=== PATIENT | male | born 1970 | race Caucasian/White ===

== ENCOUNTER 2019-10-22 18:29 | Outpatient (REF) | payer MEDICARE, SELFPAY ==
[2019-10-22 19:10] LABS: Calculated LDL 104 mg/dL (<100); Cholesterol 201 mg/dL (<200); HDL Cholesterol 56 mg/dL (40-60); Triglyceride 207 mg/dL (<150)
== END 2019-10-22 18:49 ==
LOC: LBN 18:29
PROVIDERS: PCP Internal Medicine; Visit Provider Internal Medicine
DX: E78.00 Pure hypercholesterolemia, unspecified (principal)
CPT/HCPCS: 80061

== ENCOUNTER 2021-06-09 15:43 | Outpatient (REF) | payer MEDICARE, MEDICAID, SELFPAY ==
[2021-06-09 21:35] LABS: Anion Gap 11.8 mmol/L (3-11); BUN 12 mg/dL (7-18); CO2 26.2 mmol/L (21.0-32.0); CREATININE 1.2 mg/dL (0.70-1.30); Calcium 9.3 mg/dL (8.5-10.1); Chloride 102 mmol/L (98-107); Glucose 118 mg/dL (74-106); Potassium 3.6 mmol/L (3.5-5.1); Sodium 140 mmol/L (136-145)
[2021-06-09 21:49] LABS: Cholesterol 337 mg/dL (<200); HDL Cholesterol 58 mg/dL (40-60); Triglyceride 425 mg/dL (<150)
[2021-06-09 22:01] LABS: LDL CHOLESTEROL 193 mg/dL (<100)
== END 2021-06-09 15:44 | disposition home or self-care (01) ==
LOC: LBN 15:43
PROVIDERS: PCP Internal Medicine; Visit Provider Internal Medicine
DX: I10 Essential (primary) hypertension (principal); E78.00 Pure hypercholesterolemia, unspecified
CPT/HCPCS: 80048; 80061; 83721

== ENCOUNTER 2021-06-22 13:39 | Outpatient (CLI) | payer MEDICARE, MEDICAID, SELFPAY ==
--- NOTE | 2021-06-22 13:30 | RT.EKG_ITS ---
APPROVED REPORT Exam: Resting ECG Reason for Exam: preop Patient Location: O HR:90 bpm ECG Measurements Heart Rate 90 AXIS IN 168 P 63 QRSd 97 QRS -30 QT 375 T 34 QTc 457 Conclusion Sinus rhythm...normal P axis, V-rate 60- 99 Left axis deviation...QRS axis (-30,-90)
== END 2021-06-22 13:40 | disposition home or self-care (01) ==
LOC: DI.KIM 13:40
PROVIDERS: PCP Internal Medicine; Visit Provider Internal Medicine
DX: Z01.818 Encounter for other preprocedural examination (principal)
CPT/HCPCS: 93010

== ENCOUNTER 2021-07-14 01:59 | Outpatient (CLI) | payer MEDICARE, MEDICAID, SELFPAY ==
[2021-07-14 13:05] LABS: Source Nasal/Nares
[2021-07-14 17:58] LABS: COVID-19 PCR Negative (Negative)
== END 2021-07-14 02:00 | disposition home or self-care (01) ==
LOC: LBO 01:59
PROVIDERS: PCP Internal Medicine; Visit Provider Ophthalmology
DX: Z20.822 Contact with and (suspected) exposure to COVID-19 (principal); Z01.818 Encounter for other preprocedural examination
CPT/HCPCS: 87635

== ENCOUNTER 2021-07-16 07:02 | Day surgery (SDC) | payer MEDICARE, MEDICAID, SELFPAY ==
[2021-07-16 07:20] VITALS: BP 129/87; PULSE 90; RESP 16; TEMP 36.3; O2SAT 97
[2021-07-16] MEDS: Tropicam./Phenyleph. (1/2.5%) 5 ML BTL OS ×3 (07:32→07:42)
--- NOTE | 2021-07-16 07:43 | ANES.PREOP_ITS ---
General Info Date of Service Date Performed: 07/16/21 Height: 5 ft 9.75 in Weight: 82 kg Body Mass Index (BMI): 26.1 Surgical Procedure: Operation Date: 07/16/21 08:40 Proposed Procedures Side Surgeon p Cataract Extraction with IOL Implant Left Josh Miller MD Meds Allergies and Home Medications Allergies Allergy/AdvReac Type Severity Reaction Status Date / Time Penicillins Allergy Severe unknown Verified 07/16/21 07:29 aspirin AdvReac Severe Bleed and Verified 07/16/21 07:29 Duodenal Ulcer ciprofloxacin AdvReac Unknown Nausea Verified 07/16/21 07:29 fluoxetine AdvReac Unknown BLURRED Verified 07/16/21 07:29 VISION PAPER TAPE AdvReac Mild Skin Rash Uncoded 07/16/21 07:29 Home Medication Medication Instructions Recorded Lactobacillus acidophilus 1 ea PO PC PRN 03/31/14 [Probiotic] acetaminophen [Tylenol Extra 1,000 mg PO DAILY PRN tab-cap 12/08/15 Strength] escitalopram oxalate 20 mg tablet 20 mg PO DAILY #90 tab-cap 08/24/20 famotidine 20 mg tablet 20 mg PO DAILY PRN 11/11/20 amitriptyline 75 mg tablet 75 mg PO QHS #90 tab 03/25/21 metoprolol succinate 50 mg 50 mg PO DAILY #90 tab 03/25/21 tablet,extended release 24 hr fluocinolone 0.01 % scalp oil and See Rx Instructions TOPICAL BID 06/09/21 shower cap PRN #118.28 ml mirtazapine 15 mg tablet 15 mg PO HS PRN #90 tab 06/09/21 atorvastatin 80 mg tablet 80 mg PO DAILY 06/22/21 Current Visit Medications: Current Medications Generic Name Dose Route Start Last Admin Trade Name Freq PRN Reason Stop Dose Admin Acetaminophen 1,000 mg 07/16/21 06:00 Acetaminophen 500 Mg Tab PO Q4H PRN PRN Miscellaneous Medication 0 ml 07/16/21 06:00 Prednisolone 1%, Moxifloxacin 0.5%, Nepafenac 0.1% 5ml Btl OS DIRECTED [facility] Miscellaneous Medication 0 ml 07/16/21 06:00 07/16/21 07:42 Tropicam./Phenyleph. 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 Gastroesophageal reflux disease 11/22/16 K21.9 Essential hypertension 06/26/13 I10 Elevated random blood glucose level 12/10/14 R73.09 Anxiety 05/25/16 F41.9 Medical History Medical History Cataract, bilateral 04/27/2021 [place] bilateral nuclear sclerotic Chronic pain syndrome (03/13/13) Chronic prescription opiate use (03/13/13) Lumbar radiculopathy Major depressive disorder, recurrent, unspecified (02/14/17) Opiate analgesic contract exists (03/13/13) d/c'd all opioid pain meds 08/2018 Peptic ulcer disease NSAID induced UGIB 10/17/19 ([facility] [place]); 2u PRBC; duodenal ulcer cauterization. h.pylori (-) Surgical History Surgical History Nerve stimulator placement Nerve stimulator removal Tobacco Smoking/Tobacco Use Status: Former Tobacco Use Alcohol Alcohol Intake: never Substance Use Substance use: Occasionally Substance use type: marijuana Details: Pt reports vaping 2400 07/15/21 Vital Signs and Lab Results Vital Signs Most Recent Vital Signs in EMR: Most Recent Vital Signs Temp Pulse Resp BP Pulse Ox 36.3 C L 90 16 129/87 97 07/16/21 07:20 07/16/21 07:20 07/16/21 07:20 07/16/21 07:20 07/16/21 07:20 Lab Results Blood Type / Crossmatch: No Data to Display Complete Blood Count: No Data to Display Complete Metabolic Panel: No Data to Display Liver Function Panel: No Data to Display Coagulation Panel: No Data to Display Cardiac Panel: No Data to Display Arterial Blood Gas: No Data to Display Venous Blood Gas: No Data to Display Pancreas Panel: No Data to Display Thyroid Panel: No Data to Display Infectious Disease: Coronavirus (COVID-19)(PCR) Negative (Negative) 07/14/21 11:08 07/14/21 Coronavirus 2019 Source Nasal/Nares 07/14/21 11:08 07/14/21 Blood Cultures: No Data to Display Toxicology Panel: No Data to Display Imaging and Studies Imaging and Studies EKG Summary: 06/22/2021: Exam: Resting ECG Reason for Exam: preop Patient Location: O HR:90 bpm ECG Measurements Heart Rate 90 AXIS ND 168 P 63 QRSd 97 QRS -30 QT 375 T34 QTc 457 Conclusion Sinus rhythm...normal P axis, V-rate 60- 99 Left axis deviation...QRS axis (-30,-90) Anesthesia Assessment and Plan Anesthesia History Personal History: No History of Anesthesia Complications Family History: No Family History of Anesthesia Complications Exercise Tolerance Exercise Tolerance: Metabolic Equivalents>4 Pertinent Negatives Pertinent Negatives: No Symptoms of GERD and No Major Pulmonary Symptoms or Complaints Cardiac & Pulmonary Exam Cardiac Exam: Normal S1/S2 Heart Sounds Pulmonary Exam: Clear Bilateral Breath Sounds Airway Exam Known Difficult Airway: No Mallampati Class: 1 Mouth Opening: Normal (> 3cm) Thyromental Distance: Greater than 3 cm Facial Hair: Full Torres Neck Range of Motion: Full ROM Neck Circumference: Normal Teeth Condition: Loose or Chipped (Several Missing) ASA Classification ASA Score: ASA 2 Emergency Case?: No NPO Status NPO Status: NPO Clears >2 hours, Solids >8 hours Anesthesia Plan Resuscitation Status: Full Code Anesthesia Technique: MAC Anesthesia Airway Planned: Natural Airway Monitors Used: Standard Monitors
[2021-07-16 07:45] VITALS: BMI 26.1
[2021-07-16] MEDS: Balanced Salt Soln.-PLUS 500 ML BAG (08:27)
[2021-07-16] MEDS: Tetracaine 0.5% 4 ML BTL OS (08:27)
[2021-07-16] MEDS: Lidocaine 1% Pres-Free 5 ML VIAL (08:28)
[2021-07-16] MEDS: Lidocaine 2% Jelly 6 ML SYR (08:28)
[2021-07-16] MEDS: Duovisc Viscoelastic System EACH 1 EACH (08:28)
[2021-07-16] MEDS: Povidone-Iodine Ophth 30 ML BTL (08:30)
[2021-07-16 08:50] VITALS: BP 127/80; PULSE 86; RESP 18; TEMP 36.5; O2SAT 94
--- NOTE | 2021-07-16 08:56 | W.PM.OP ---
Date of service: 07/16/21 Time of Service: 08:57 Operative Note Operative Note DATE OF PROCEDURE: 07/16/21 PRE-OP DIAGNOSIS: Nuclear cataract, right eye POST-OP DIAGNOSIS: same PROCEDURE: Cataract extraction using phacoemulsification with intraocular lens implant, right eye SURGEON: Josh Miller ANESTHESIA TYPE: Local By Surgeon and MAC Refer to Anesthesia Record ESTIMATED BLOOD LOSS: 0 PATHOLOGY: none sent COMPLICATIONS: None Patient was transported to: same day Patient's condition: stable Implants: Bryson & Bryson/ALEX Tecnis [id number] Indications: Progressive visual loss due to cataract, right eye Procedure Description: CATARACT SURGERY OPERATIVE REPORT PREOPERATIVE DIAGNOSIS: 1. Nuclear cataract, right eye POSTOPERATIVE DIAGNOSIS: Same OPERATION: 1. Cataract extraction using phacoemulsification with posterior chamber intraocular lens implant, right eye. IOL: IOL Veterinary Practice Manager/Model: Bryson & Bryson / ALEX Tecnis [id number] IOL Power: + 12.0 diopters IOL Serial Number: [id number] Optic Diameter: 6.0mm Haptic/Overall Diameter: 13.0mm PHACO INFO: BrentM Cubed Technologiesurion Vision System with OZil and Active Fluidics Cumulative Dispersed Energy (CDE): 7.11 seconds SURGEON: Josh Miller MD, AGUS ANESTHESIA: Monitored Anesthesia Care (MAC), with local sub-tenon's anesthetic infiltration COMPLICATIONS: None SPECIMENS: None INDICATIONS FOR PROCEDURE: The patient is a 50-year-old male with history of progressive decreased vision in his right eye secondary to the development of nuclear cataract. He has a history of right esotropia as well. The option of cataract surgery was offered to the patient and he wished to proceed. PROCEDURE: The correct surgical eye was identified and marked as the right eye and the pupil was dilated in the preoperative area using mydriatics and cycloplegics. The dilated pupil size was 7.0 mm. Oral sedation was administered in the form of an Imprimis MKO Melt (midazolam 3mg/ketamine 25mg/ondansetron 2mg). The patient was brought to the operating room where cardiopulmonary monitoring was instituted and surgical time-out was performed, confirming the correct operative eye and IOL power. Topical anesthesia was administered and ophthalmic povidone-iodine 5% was instilled into the conjunctival fornices. Lidocaine gel was applied to the cornea and the elle-ocular area was prepped with Betadine 10% solution and draped in the usual sterile fashion for intraocular surgery, including an aperture drape. A Tegaderm transparent film dressing was cut in half and used to cover the lashes and lid margins. Care was taken to sequester the lashes and lid margins under the Tegaderm dressing. A lid speculum was placed between the lids of the operative eye and the Ismael-Norah operating microscope was maneuvered into position. Flora scissors were then used to make a conjunctival buttonhole approximately 6mm posterior to the limbus in the inferonasal quadrant. Blunt dissection was carried out to expose bare sclera, and a blunt-tipped sub-tenon?s anesthesia cannula was introduced and passed posteriorly along the globe where non-preserved plain lidocaine was injected into posterior sub-Tenon?s space. A sideport knife was used to make a paracentesis port inferotemporally. Intraocular phenylephrine/lidocaine was injected into the anterior chamber. The anterior chamber was filled with viscoelastic. A 2.4mm keratome knife was used to create a half-thickness groove at the limbus and then to construct a three-plane near-clear corneal tunnel extending 2.0mm into clear cornea superiortemporally. A flap was raised on the anterior capsule and capsulorhexis forceps were used to complete a continuous curvilinear capsulorhexis of 5.5 mm. Capsulorhexis was challenging due to poor patient fixation and constant eye movement. Balanced salt solution was then used to perform cortical cleaving hydrodissection and nuclear hydrodelineation until the lens could be freely rotated within the capsular bag. The lens nucleus was then disassembled and removed within the capsular bag and iris plane using phacoemulsification. Residual cortical material was removed using the I/A handpiece. The posterior capsule was carefully polished to remove as much residual lens epithelial cells as safely possible. The capsular bag was then inflated and the anterior chamber deepened with viscoelastic. The lens implant described above was inserted into the capsular bag using the ALEX Edon Injector. A Kuglen hook was used to dial the IOL into position. Residual viscoelastic was then removed first from posterior to the IOL, then from the anterior chamber using the I/A handpiece. The lens implant was noted to center nicely within the capsular bag. The incisions were stromally hydrated, and the anterior chamber was reformed using BSS. Then 0.5cc of moxifloxacin 1.0mg/ml were injected into the capsular bag and anterior chamber. The incisions were checked with a Weck spear and found to be secure. Several drops of ophthalmic povidone-iodine 5% were then applied to the eye followed by two drops of Imprimis combination prednisolone/moxifloxacin/nepafenac solution. The drapes were removed and a clear plastic protective eye shield was placed over the eye. The patient was then returned to Same Day Surgery in stable condition.
--- NOTE | 2021-07-16 08:59 | W.PM.DSUDISC ---
Discharge Plan Disposition Patient Disposition: HOME Condition: Good Discharge Details Attending Provider: Josh Miller Primary Care Provider: Karen Vásquez Home Meds and New Rx's Prescriptions: No Action famotidine [Pepcid AC] 20 mg tablet 20 mg PO DAILY PRNRF: 0 mirtazapine 15 mg tablet 15 mg PO HS PRN (Reason: insomnia) Qty: 90 RF: 3 fluocinolone and shower cap 0.01 % oil See Rx Instructions Topical BID PRN (Reason: eczema) Qty: 118.28 RF: 2 atorvastatin 80 mg tablet 80 mg PO DAILY RF: 0 Probiotic 1 EACH capsule 1 ea PO PC PRNRF: 0 acetaminophen [Tylenol Extra Strength] 500 MG tablet 1,000 mg PO DAILY PRNRF: 0 escitalopram oxalate [Lexapro] 20 mg tablet 20 mg PO DAILY Qty: 90 RF: 3 amitriptyline 75 mg tablet 75 mg PO QHS Qty: 90 RF: 3 metoprolol succinate 50 mg tablet extended release 24 hr 50 mg PO DAILY Qty: 90 RF: 3 Discharge Instructions Stand Alone Forms: Post-op Topical Cataract, Nneka Woodward (DSU) Discharge Orders Discharge Orders: Discharge Order (Routine); Ordered 07/16/21 Ordered By: Josh Miller DS: Diagnosis Discharge Diagnosis (1) Nuclear sclerotic cataract of right eye: Status: Resolved
[2021-07-16 09:08] VITALS: BP 117/90; PULSE 86; RESP 18; TEMP 36.4; O2SAT 94
--- NOTE | 2021-07-16 09:27 | W.ANESPOSTOP ---
Postoperative Evaluation Date, Time and Location Date Performed: 07/16/21 Time Performed: 09:10 Patient Location: Day Surgery Unit Vital Signs Most Recent Imported Vital Signs: Most Recent Vital Signs Temp Pulse Resp BP Pulse Ox 36.4 C L 86 18 117/90 94 07/16/21 09:08 07/16/21 09:08 07/16/21 09:08 07/16/21 09:08 07/16/21 09:08 Pain Score Most Recent Pain Score: Most Recent Pain Score Pain Level 0 07/16/21 09:08 Assessment Mental Status: Awake (Alert & Oriented to Patient Baseline) Airway and Respiratory Function: Patent airway with normal (patient baseline) respiratory exam Cardiovascular Function: Hemodynamically Stable Hydration Status: Adequately Hydrated Nausea & Vomiting: No Nausea or Vomiting Pain: Pt. Denies Any Pain Peripheral Nerve Block: Patient did not receive a nerve block
== END 2021-07-16 09:17 | disposition home or self-care (01) ==
PROVIDERS: PCP Internal Medicine; Visit Provider Ophthalmology
PROC: (CPT 66984; principal; 2021-07-16 08:30)
DX: H25.11 Age-related nuclear cataract, right eye (principal); Z79.899 Other long term (current) drug therapy; F41.9 Anxiety disorder, unspecified; E78.00 Pure hypercholesterolemia, unspecified; R00.0 Tachycardia, unspecified; F33.9 Major depressive disorder, recurrent, unspecified
CPT/HCPCS: 66984; V2632

== ENCOUNTER 2022-12-21 12:50 | Outpatient (REF) | payer MEDICARE, MEDICAID, SELFPAY ==
[2022-12-21 15:08] LABS: Anion Gap 8.4 mmol/L (3-11); BUN 19 mg/dL (7-18); CO2 28.6 mmol/L (21.0-32.0); CREATININE 1.1 mg/dL (0.70-1.30); Calcium 9.5 mg/dL (8.5-10.1); Calculated LDL 124 mg/dL (<100); Chloride 103 mmol/L (98-107); Cholesterol 255 mg/dL (<200); Estimated GFR 80.77 (mL/min/1.73m2); Glucose 120 mg/dL (74-106); HDL Cholesterol 63 mg/dL (40-60); Potassium 4.5 mmol/L (3.5-5.1); Sodium 140 mmol/L (136-145); Triglyceride 342 mg/dL (<150)
[2022-12-21 15:17] LABS: Hemoglobin A1C 6.1 % (<5.7)
== END 2022-12-21 12:51 | disposition home or self-care (01) ==
LOC: LBN 12:50
PROVIDERS: PCP Internal Medicine; Referring Provider Nurse Practitioner Adult Health; Visit Provider Nurse Practitioner Adult Health
DX: I10 Essential (primary) hypertension (principal); E78.00 Pure hypercholesterolemia, unspecified; R73.09 Other abnormal glucose; F33.8 Other recurrent depressive disorders; F41.8 Other specified anxiety disorders; G24.1 Genetic torsion dystonia; Z79.899 Other long term (current) drug therapy
CPT/HCPCS: 80048; 80061; 83036

== ENCOUNTER 2024-01-17 09:22 | Outpatient (CLI) | payer MEDICARE, MEDICAID, SELFPAY ==
[2024-01-17 09:30] LABS: Hemoglobin A1C 5.9 % (<5.7)
[2024-01-17 09:33] LABS: Anion Gap 10.9 mmol/L (3-11); BUN 11 mg/dL (7-18); CO2 29.1 mmol/L (21.0-32.0); CREATININE 1.1 mg/dL (0.70-1.30); Calcium 8.9 mg/dL (8.5-10.1); Chloride 104 mmol/L (98-107); Estimated GFR 79.77 (mL/min/1.73m2); Glucose 139 mg/dL (74-106); Sodium 144 mmol/L (136-145)
[2024-01-18 19:18] LABS: Calculated LDL 98 mg/dL (<100); Cholesterol 198 mg/dL (<200); HDL Cholesterol 60 mg/dL (40-60); Triglyceride 201 mg/dL (<150)
== END 2024-01-17 09:23 | disposition home or self-care (01) ==
LOC: LBO 09:22
PROVIDERS: PCP Nurse Practitioner Adult Health; Visit Provider Nurse Practitioner Adult Health
DX: E78.00 Pure hypercholesterolemia, unspecified (principal); R73.03 Prediabetes; I10 Essential (primary) hypertension
CPT/HCPCS: 36415; 80048; 80061; 83036

== ENCOUNTER → 2024-08-19 08:06 | Outpatient (BNVA) | payer MEDICARE, MEDICAID, SELFPAY | PROVIDERS: PCP Nurse Practitioner Adult Health; Referring Provider Nurse Practitioner Adult Health; Visit Provider Psychiatry & Neurology Neurology | DX: M54.2 Cervicalgia (principal); M54.50 Low back pain, unspecified; G89.4 Chronic pain syndrome; R09.A2 Foreign body sensation, throat | CPT/HCPCS: 99205 ==

== ENCOUNTER → 2024-12-25 11:03 | Outpatient (BNVA) | payer MEDICARE, MEDICAID, SELFPAY | PROVIDERS: PCP Nurse Practitioner Adult Health; Referring Provider Nurse Practitioner Adult Health; Visit Provider Psychiatry & Neurology Neurology | DX: G89.4 Chronic pain syndrome (principal); R09.A2 Foreign body sensation, throat | CPT/HCPCS: 99214 ==

== ENCOUNTER 2025-02-06 10:44 | Outpatient (REF) | payer MEDICARE, MEDICAID, SELFPAY ==
[2025-02-06 17:31] LABS: Hemoglobin A1C 5.8 % (<5.7)
[2025-02-06 17:46] LABS: Anion Gap 5.1 mmol/L (3-11); BUN 16 mg/dL (7-18); CO2 31.9 mmol/L (21.0-32.0); CREATININE 1.1 mg/dL (0.70-1.30); Calcium 9.6 mg/dL (8.5-10.1); Calculated LDL 95 mg/dL (<100); Chloride 103 mmol/L (98-107); Cholesterol 194 mg/dL (<200); Estimated GFR 79.28 (mL/min/1.73m2); Glucose 122 mg/dL (74-106); HDL Cholesterol 58 mg/dL (>or=40); Potassium 4.5 mmol/L (3.5-5.1); Sodium 140 mmol/L (136-145); Triglyceride 208 mg/dL (<150)
== END 2025-02-06 10:45 | disposition home or self-care (01) ==
LOC: LBN 10:44
PROVIDERS: PCP Nurse Practitioner Adult Health; Visit Provider Nurse Practitioner Adult Health
DX: I10 Essential (primary) hypertension (principal); R73.03 Prediabetes; E78.00 Pure hypercholesterolemia, unspecified
CPT/HCPCS: 80048; 80061; 83036

== ENCOUNTER 2025-03-17 12:28 | Outpatient (REF) | payer MEDICARE, MEDICAID, SELFPAY ==
--- NOTE | 2025-03-17 11:47 | SKI_PTH ---
PATIENT: David Suárez LOC: [facility] U#:[id number] AGE/SX: 54/M ROOM: RE03/17/[address]: Bakari Acosta MD : 1970 BED: DIS: 03/17/2025 SPEC #: [id number] RECD: 03/17/25 17:55 STATUS: DUSTY REQ #: [id number] NORMAN: 03/17/25 11:[address]: Bakari Acosta DEPT: Surgical Specimen RECD BY: Sherry Zapata ENTERED: 03/17/25 17:56 SP TYPE: RACHEAL FERRARI DR: Olivia Rangel APRN Tissues: 1 - SKIN BIOPSY(SHAVE/PUNCH) Procedures: SKIN LEVEL 4 Comments: [id number]
== END 2025-03-17 12:29 | disposition home or self-care (01) ==
LOC: LBN 12:28
PROVIDERS: PCP Nurse Practitioner Adult Health; Visit Provider Otolaryngology
DX: C44.311 Basal cell carcinoma of skin of nose (principal); L98.9 Disorder of the skin and subcutaneous tissue, unspecified
CPT/HCPCS: 88305

== ENCOUNTER 2025-03-24 12:45 | Outpatient (REF) | payer MEDICARE, MEDICAID, SELFPAY ==
--- NOTE | 2025-03-24 12:18 | SKI_PTH ---
PATIENT: David Suárez LOC: [facility] U#:[id number] AGE/SX: 54/M ROOM: RE03/24/[address]: Bakari Acosta MD : 1970 BED: DIS: 03/24/2025 SPEC #: [id number] RECD: 03/24/25 17:48 STATUS: DUSTY REQ #: [id number] NORMAN: 03/24/25 12:[address]: Bakari Acosta DEPT: Surgical Specimen RECD BY: Sherry Zapata ENTERED: 03/24/25 17:49 SP TYPE: RACHEAL FERRARI DR: Olivia Rangel APRN Tissues: 1 - SKIN BIOPSY(SHAVE/PUNCH) Procedures: SKIN LEVEL 4 Comments: [id number]
== END 2025-03-24 12:46 | disposition home or self-care (01) ==
LOC: LBN 12:45
PROVIDERS: PCP Nurse Practitioner Adult Health; Visit Provider Otolaryngology
DX: L98.9 Disorder of the skin and subcutaneous tissue, unspecified (principal)
CPT/HCPCS: 88305